=== PATIENT | female | born 1960 | race Caucasian/White ===

== ENCOUNTER 2017-01-22 04:50 | Emergency (ER) | payer MEDICAID ==
[~2017-01-22] VITALS: Ht 162.6 cm; Wt 106.4 kg
[~2017-01-22 04:50] MED LIST: ALLO100T21 PO; BACTO TP; CARV3.12 PO; CLIN300C2 PO; ENAL20TA31 PO; FURO-572 PO; KETO2CRE31 TP; LORA2SOL69 PO; POTA8TER12 PO; [UNRECOGNIZED DRUG - CODE] PO
[2017-01-22 05:14] VITALS: BP 151/90
--- NOTE | 2017-01-22 07:01 | NUR ---
TO ER BED 8
--- NOTE | 2017-01-22 07:04 | NUR ---
56F BIB FRIEND C/O ABDOMINAL PAIN X 4 QUADRANTS X 3 DAYS; PT C/O ACHING PAIN, RADIATING TO BL SIDES OF BACK, 10/10 AT THIS TIME. ABDOMEN SOFT, NON-TENDER, ACTIVE BOWEL SOUNDS X 4 QUADRANTS; PT C/O CONSTIPATION X 3 DAYS, W/NAUSEA, BUT DENIES VOMITING/DIARRHEA AT THIS TIME; PT STATES " I HAVE CELLULITIS ON BOTH MY LEGS"; REDNESS/WARMTH NOTED TO BL LEGS AT THIS TIME; PT A&OX4, BL LUNG SOUNDS CLEAR, RR EVEN/UNLABORED, SKIN IS WARM/DRY AT THIS TIME; PT RESTING IN BED W/HOB ELEVATED AND IN LOWEST POSITION; POSITIONED FOR COMFORT; ER MD MADE AWARE OF STATUS. WILL CONTINUE TO MONITOR.
--- NOTE | 2017-01-22 07:09 | NUR ---
ER MD DR. HUANG EVALUATING PT AT BEDSIDE.
[2017-01-22] MEDS ORDERED: DICYCLOMINE HCL LIQUID 20 MG, ALUMINUM HYD/MAG/SIMETHICONE 30 ML, LIDOCAINE VISCOUS 2% ... PO ONE ×3 (07:15)
[2017-01-22] MEDS ORDERED: KETOROLAC 60 MG/2 ML VIAL IM ONE (07:15)
--- NOTE | 2017-01-22 07:25 | NUR ---
PT REFUSED TORADOL; ER MD DR. CONRAD NOTIFIED. WILL CONTINUE TO MONITOR PT.
--- NOTE | 2017-01-22 07:31 | NUR ---
PT TAKEN TO XRAY VIA W/C ACCOMPANIED BY [employer].
[2017-01-22 08:03] LABS: BASOPHILS # (AUTO) 0.1 K/uL (0.00-0.22); BASOPHILS % (AUTO) 1.5 % (0.0-2.0); EOSINOPHILS # (AUTO) 0.2 K/uL (0-0.4); HEMATOCRIT 38.2 % (36-48); HEMOGLOBIN 12.4 g/dL (12.0-16.0); LYMPHOCYTES # (AUTO) 2.7 K/uL (2.5-16.5); LYMPHOCYTES % (AUTO) 37.9 % (20.5-51.1); MEAN CORPUSCULAR HEMOGLOBIN 24 pg (27-31); MEAN CORPUSCULAR HGB CONC 33 g/dL (33-37); MEAN CORPUSCULAR VOLUME 75 fL (80-94); MONOCYTES # (AUTO) 0.6 K/uL (0.8-1.0); MONOCYTES % (AUTO) 7.8 % (1.7-9.3); NEUTROPHILS # (AUTO) 3.5 K/uL (1.8-7.7); NEUTROPHILS % (AUTO) 49.8 % (42.2-75.2); PLATELET COUNT (AUTO) 201 K/uL (140-450); RED BLOOD CELL COUNT(AUTO) 5.11 MIL/uL (4.20-5.40); RED CELL DISTRIBUTION WIDTH 16.5 % (11.6-13.7); WHITE BLOOD COUNT (AUTO) 7.2 K/uL (4.8-10.8)
[2017-01-22 08:11] LABS: ANION GAP 9.5 (8-16); CALCIUM 8.8 mg/dL (8.5-10.1); CARBON DIOXIDE 32.5 mmol/L (21-32); CREATININE 0.9 mg/dL (0.6-1.3)
[2017-01-22 08:18] LABS: ALBUMIN 3.2 g/dL (3.4-5.0); TOTAL BILIRUBIN 0.5 mg/dL (0.0-1.0); TOTAL PROTEIN, SERUM 6.8 g/dL (6.4-8.2)
[2017-01-22 08:42] VITALS: BP 143/100
--- NOTE | 2017-01-22 08:42 | NUR ---
Patient discharged with v/s stable. Written and verbal after care instructions given and explained. Patient alert, oriented and verbalized understanding of instructions. Ambulatory with steady gait. All questions addressed prior to discharge. ID band removed. Patient advised to follow up with PMD. Rx of BENTYL 20MG TAB, CHLORHEXIDINE GLUCONATE 0.12% RINSE & COLACE 100MG CAP given. Patient educated on indication of medication including possible reaction and side effects. Opportunity to ask questions provided and answered.
== END 2017-01-22 08:42 | disposition home or self-care (01) ==
LOC: MED 04:50
DX: S80.12XA Contusion of left lower leg, initial encounter (principal); R10.9 Unspecified abdominal pain; E11.9 Type 2 diabetes mellitus without complications; I10 Essential (primary) hypertension; Z87.442 Personal history of urinary calculi; Z88.0 Allergy status to penicillin; W06.XXXA Fall from bed, initial encounter; Y93.89 Activity, other specified; Y92.89 Other specified places as the place of occurrence of the external cause; Y99.8 Other external cause status
CPT/HCPCS: 36415; 72170; 73502; 73562; 73590; 80053; 81002; 81025; 83690; 85025; 99285

== ENCOUNTER 2017-05-20 19:08 | Emergency (ER) | payer MEDICAID, OTHER ==
[~2017-05-20] VITALS: Ht 162.6 cm; Wt 102.5 kg
[2017-05-20 19:14] VITALS: BP 180/99
--- NOTE | 2017-05-20 20:25 | NUR ---
[facility] ER OF3
--- NOTE | 2017-05-20 20:30 | NUR ---
57 Y/O W/C/O MOUTH PAIN, MRSA IN HER URINE FOR A WHILE, BODYACHES. DENIES ANY FEVER OR CHILLS. NO S/S OF DISTRESS NOTED. ER MD MADE AWARE.
[2017-05-20 20:34] LABS: APPEARANCE,URINE CLEAR (CLEAR); BILIRUBIN,URINE NEGATIVE (NEGATIVE); BLOOD, URINE 2+ (NEGATIVE); COLOR,URINE YELLOW (YELLOW); LEUKOCYTE ESTERASE ,URINE NEGATIVE (NEGATIVE); NITRITE, URINE NEGATIVE (NEGATIVE); PROTEIN,URINE 3+ (NEGATIVE); UGLUCOSE 3+ (NEGATIVE); UROBILINOGEN,URINE 0.2 EU/dL (0.2 - 1)
[2017-05-20 20:44] LABS: BACTERIA,URINE RARE /HPF (None Seen); MUCUS,URINE 1+ /LPF (None Seen); RBC,URINE 20-40 /HPF (0-5); WBC,URINE 0-5 /HPF (0-5)
[2017-05-20] MEDS ORDERED: NACL 0.9% 1,000 ML IV ONE (20:55)
--- NOTE | 2017-05-20 20:55 | NUR ---
MOVED TO ER BED 6
[2017-05-20] MEDS ORDERED: MORPHINE SULFATE 4 MG/ML SYR IVP ONE (21:05)
[2017-05-20] MEDS ORDERED: ONDANSETRON 4 MG/2 ML VIAL IVP ONE (21:05)
[2017-05-20 21:22] LABS: BASOPHILS # (AUTO) 0.3 K/uL (0.00-0.22); EOSINOPHILS # (AUTO) 0.2 K/uL (0-0.4); HEMATOCRIT 38.7 % (36-48); HEMOGLOBIN 12.5 g/dL (12.0-16.0); LYMPHOCYTES # (AUTO) 2.4 K/uL (2.5-16.5); MEAN CORPUSCULAR HEMOGLOBIN 24 pg (27-31); MEAN CORPUSCULAR HGB CONC 32 g/dL (33-37); MEAN CORPUSCULAR VOLUME 74 fL (80-94); MONOCYTES # (AUTO) 0.6 K/uL (0.8-1.0); NEUTROPHILS # (AUTO) 4.1 K/uL (1.8-7.7); PLATELET COUNT (AUTO) 223 K/uL (140-450); RED BLOOD CELL COUNT(AUTO) 5.24 MIL/uL (4.20-5.40); RED CELL DISTRIBUTION WIDTH 16.5 % (11.6-13.7); WHITE BLOOD COUNT (AUTO) 7.6 K/uL (4.8-10.8)
[2017-05-20 21:32] LABS: ANION GAP 9.9 (8-16); CALCIUM 8.5 mg/dL (8.5-10.1); CARBON DIOXIDE 28.9 mmol/L (21-32); CREATININE 0.8 mg/dL (0.6-1.3); POTASSIUM 3.8 mmol/L (3.5-5.1)
--- NOTE | 2017-05-20 22:17 | NUR ---
Patient appears to be resting comfortably in bed. Vital Signs within normal limits. Respirations even and unlabored.
[2017-05-20 22:36] VITALS: BP 162/92
== END 2017-05-20 22:36 | disposition home or self-care (01) ==
LOC: MED 19:08
DX: M79.1 Myalgia (principal); E11.65 Type 2 diabetes mellitus with hyperglycemia; J44.9 Chronic obstructive pulmonary disease, unspecified; I10 Essential (primary) hypertension; Z88.0 Allergy status to penicillin
CPT/HCPCS: 36415; 71010; 80048; 81001; 85025; 93005; 96361; 96374; 96375; 99285; J2270; J2405; J7030; Q0092

== ENCOUNTER 2017-11-03 22:45 | Emergency (ER) | payer OTHER ==
[~2017-11-03] VITALS: Ht 167.6 cm; Wt 102.6 kg
[~2017-11-03 22:45] MED LIST changes: +ENAL20TA19 PO; -ENAL20TA31 PO
[2017-11-03 23:02] VITALS: BP 175/72
--- NOTE | 2017-11-03 23:08 | NUR ---
PT DROVE SELF TO ED C/O LEFT EAR "PLUGGED UP," CLEAR NASAL DISCHARGE, SOAR THROAT X3 WEEKS. PT VSS, IN BED IN POC WITH HOB ELEVATD. PT REQUESTING HOME MEDICATION REFILL. A&OX4. PT DENIES CHEST PAIN, RESPIRATORY DISTRESS. MD AWARE. CONTINUE TO MONITOR.
--- NOTE | 2017-11-03 23:08 | NUR ---
PT TAKEN TO BED 11
[2017-11-03] MEDS ORDERED: NACL 0.9% 1,000 ML IV ONE (23:40)
[2017-11-04 00:56] VITALS: BP 175/72
--- NOTE | 2017-11-04 00:56 | NUR ---
Patient discharged with v/s stable denies pain. Written and verbal after care instructions given and explained. Patient alert, oriented and verbalized understanding of instructions. Ambulatory with steady gait. All questions addressed prior to discharge. ID band removed. Patient advised to follow up with PMD. Rx of Allopurinol, Flonase, Lasix, Enalapril Maleate, Nexium given. Patient educated on indication of medication including possible reaction and side effects. Opportunity to ask questions provided and answered.
== END 2017-11-04 00:56 | disposition home or self-care (01) ==
LOC: MED 22:45
DX: H91.92 Unspecified hearing loss, left ear (principal); Z76.0 Encounter for issue of repeat prescription; R09.81 Nasal congestion; R05 Cough; J44.9 Chronic obstructive pulmonary disease, unspecified; E11.9 Type 2 diabetes mellitus without complications; K21.9 Gastro-esophageal reflux disease without esophagitis; I10 Essential (primary) hypertension; Z88.0 Allergy status to penicillin; Z79.899 Other long term (current) drug therapy
CPT/HCPCS: 99283

== ENCOUNTER 2020-05-27 22:16 | Observation (INO) | payer OTHER ==
[~2020-05-27] VITALS: Ht 162.6 cm; Wt 102.1 kg
[~2020-05-27 22:16] MED LIST changes: -ENAL20TA19 PO; +ENAL20TA99 PO
[2020-05-27 22:28] VITALS: BP 139/105
[2020-05-27 23:22] LABS: MEAN CORPUSCULAR HEMOGLOBIN 13 pg (27-31); MEAN CORPUSCULAR HGB CONC 26 g/dL (33-37); PLATELET COUNT (AUTO) 276 K/uL (140-450); RED BLOOD CELL COUNT(AUTO) 3.73 MIL/uL (4.20-5.40); RED CELL DISTRIBUTION WIDTH 22.4 % (11.6-13.7); WHITE BLOOD COUNT (AUTO) 7.5 K/uL (4.8-10.8)
[2020-05-27 23:33] LABS: ALBUMIN 3.1 g/dL (3.4-5.0); ANION GAP 16.5 (8-16); CARBON DIOXIDE 22.8 mmol/L (21-32); CREATININE 1.3 mg/dL (0.6-1.3); POTASSIUM 4.3 mmol/L (3.5-5.1); TOTAL BILIRUBIN 0.5 mg/dL (0.0-1.0)
[2020-05-27 23:38] LABS: EOSINOPHILS % (MANUAL) 1 % (0-4); LYMPHOCYTES % (MANUAL) 23 % (20-46); MONOCYTES % (MANUAL) 6 % (5-12)
[2020-05-28 00:12] LABS: PROTHROMBIN TIME 9.8 secs (10.8-13.4)
[2020-05-28] MEDS ORDERED: ONDANSETRON 4 MG/2 ML VIAL IVP PRN (02:25)
[2020-05-28] MEDS ORDERED: ACETAMINOPHEN 325 MG TAB PO PRN (02:25)
[2020-05-28] MEDS ORDERED: INSULIN LISPRO SLIDING SCALE 100 UNITS/ML VIAL SUBQ PRN (05:15)
[2020-05-28 08:12] VITALS: BP 138/78
[2020-05-28] MEDS ORDERED: PANTOPRAZOLE 40 MG TABEC PO SCH (09:00)
[2020-05-28] MEDS ORDERED: FERROUS SULFATE 325 MG TABEC PO SCH (17:00)
== END 2020-05-28 10:05 | disposition left against medical advice (07) ==
LOC: MED 22:16 → MTU 05-28 02:40
PROVIDERS: ADMIT Internal Medicine; ATTEND Internal Medicine
DX: D50.9 Iron deficiency anemia, unspecified (principal); E11.9 Type 2 diabetes mellitus without complications; R10.13 Epigastric pain; R07.89 Other chest pain; I10 Essential (primary) hypertension; J44.9 Chronic obstructive pulmonary disease, unspecified; K21.9 Gastro-esophageal reflux disease without esophagitis; Z91.19 Patient's noncompliance with other medical treatment and regimen; Z59.0 Homelessness; Z79.4 Long term (current) use of insulin; Z79.899 Other long term (current) drug therapy; Z88.0 Allergy status to penicillin
CPT/HCPCS: 36415; 36430; 71045; 80053; 82948; 83690; 83880; 84484; 85025; 85610; 85730; 86886; 86900; 86901; 86920; 93005; 96372; 99291; G0378; J1815; P9016

== ENCOUNTER 2020-06-19 20:51 | Emergency (ER) | payer OTHER ==
[~2020-06-19] VITALS: Ht 162.6 cm; Wt 104.3 kg
[2020-06-19 21:25] VITALS: BP 144/83
--- NOTE | 2020-06-19 21:30 | NUR ---
PT W/C TO BED 3 PT IN A LOT OF PAIN TO WALK FAR DISTANCE
--- NOTE | 2020-06-19 21:36 | NUR ---
PT PROVIDING URINE SAMPLE
[2020-06-19] MEDS ORDERED: MORPHINE SULFATE 4 MG/ML SYR IVP ONE ×2 (21:50→23:20)
[2020-06-19] MEDS ORDERED: ONDANSETRON 4 MG/2 ML VIAL IVP ONE (21:50)
--- NOTE | 2020-06-19 22:14 | NUR ---
LABS COLLECTED AT TIME OF IV START
[2020-06-19 22:21] LABS: BASOPHILS % (AUTO) 0.7 % (0.0-2.0); EOSINOPHILS # (AUTO) 0.1 K/uL (0-0.4); EOSINOPHILS % (AUTO) 2.5 % (0.0-4.0); HEMATOCRIT 29.3 % (36-48); HEMOGLOBIN 8.7 g/dL (12.0-16.0); LYMPHOCYTES # (AUTO) 1.4 K/uL (2.5-16.5); MEAN CORPUSCULAR HEMOGLOBIN 19 pg (27-31); MEAN CORPUSCULAR HGB CONC 30 g/dL (33-37); MEAN CORPUSCULAR VOLUME 62.8 fL (80-94); MONOCYTES # (AUTO) 0.4 K/uL (0.8-1.0); MONOCYTES % (AUTO) 7.6 % (1.7-9.3); NEUTROPHILS # (AUTO) 3.5 K/uL (1.8-7.7); NEUTROPHILS % (AUTO) 63.2 % (42.2-75.2); PLATELET COUNT (AUTO) 281 K/uL (140-450); RED BLOOD CELL COUNT(AUTO) 4.67 MIL/uL (4.20-5.40); WHITE BLOOD COUNT (AUTO) 5.5 K/uL (4.8-10.8)
--- NOTE | 2020-06-19 22:27 | NUR ---
PT C/O LLQ PAIN X 2 DAYS, SHARP 10/10 PAIN. DENIES N/V/D. NO PAIN WITH URINATION. PT STATES TENDER UPON PALPATION TO AREA. AFEBRILE, NO SOB. BED IN LOWEST POSITION AMD SIDERAIL UP X 1. ALLERGY- PCN HX - DM, HTN
--- NOTE | 2020-06-19 22:28 | NUR ---
PT TAKEN TO CT VIA JAKOB
--- NOTE | 2020-06-19 22:41 | NUR ---
PT RETURNED FROM CT, STATES PAIN IS A LITTLE BETTER. REQUESTING ICE CHIPS. DENIES N/V
[2020-06-19 22:42] LABS: APPEARANCE,URINE HAZY (CLEAR); COLOR,URINE YELLOW (YELLOW)
[2020-06-19 22:43] LABS: BILIRUBIN,URINE NEGATIVE (NEGATIVE); BLOOD, URINE 1+ (NEGATIVE); NITRITE, URINE NEGATIVE (NEGATIVE); UGLUCOSE 3+ (NEGATIVE)
[2020-06-19 22:44] LABS: LEUKOCYTE ESTERASE ,URINE TRACE (NEGATIVE)
[2020-06-19 22:52] LABS: ALBUMIN 3.2 g/dL (3.4-5.0); ANION GAP 8.8 (8-16); CARBON DIOXIDE 27.2 mmol/L (21-32); CREATININE 0.8 mg/dL (0.6-1.3); TOTAL BILIRUBIN 0.3 mg/dL (0.0-1.0)
[2020-06-19 23:07] LABS: RBC,URINE 11-20 (MOD) /HPF (0-5); WBC,URINE 0-5 /HPF (0-5)
[2020-06-20 00:05] VITALS: BP 144/81
--- NOTE | 2020-06-20 00:06 | NUR ---
Patient discharged with v/s stable. Written and verbal after care instructions given and explained. Patient verbalized understanding. Ambulatory with steady gait. All questions addressed prior to discharge. Advised to follow up with PMD.
== END 2020-06-20 00:05 | disposition home or self-care (01) ==
LOC: MED 20:51
DX: N20.0 Calculus of kidney (principal); N28.1 Cyst of kidney, acquired; E11.9 Type 2 diabetes mellitus without complications; I10 Essential (primary) hypertension; R16.1 Splenomegaly, not elsewhere classified; R73.9 Hyperglycemia, unspecified; R31.9 Hematuria, unspecified
CPT/HCPCS: 36415; 74176; 80053; 81001; 81025; 83690; 85025; 96374; 96375; 96376; 99284; J2270; J2405

== ENCOUNTER 2020-10-04 04:16 | Emergency (ER) | payer OTHER ==
[~2020-10-04] VITALS: Ht 162.6 cm; Wt 99.8 kg
[2020-10-04 04:55] VITALS: BP 203/100
--- NOTE | 2020-10-04 04:55 | NUR ---
to tent ambulatory
[2020-10-04 05:15] VITALS: BP 203/100
--- NOTE | 2020-10-04 05:25 | NUR ---
SEEN AND EXAMINED BY MAYTE WITH ORDERS AND CARRIED OUT
[2020-10-04 06:50] LABS: BASOPHILS % (AUTO) 0.5 % (0.0-2.0); EOSINOPHILS # (AUTO) 0.2 K/uL (0-0.4); EOSINOPHILS % (AUTO) 3.7 % (0.0-4.0); LYMPHOCYTES % (AUTO) 32.8 % (20.5-51.1); MEAN CORPUSCULAR HEMOGLOBIN 20 pg (27-31); MEAN CORPUSCULAR HGB CONC 31 g/dL (33-37); MEAN CORPUSCULAR VOLUME 65.8 fL (80-94); MONOCYTES # (AUTO) 0.6 K/uL (0.8-1.0); MONOCYTES % (AUTO) 9.3 % (1.7-9.3); NEUTROPHILS # (AUTO) 3.2 K/uL (1.8-7.7); NEUTROPHILS % (AUTO) 53.7 % (42.2-75.2); PLATELET COUNT (AUTO) 259 K/uL (140-450); RED BLOOD CELL COUNT(AUTO) 5.48 MIL/uL (4.20-5.40); RED CELL DISTRIBUTION WIDTH 19.1 % (11.6-13.7)
[2020-10-04 07:02] LABS: ALBUMIN 3.3 g/dL (3.4-5.0); ANION GAP 10.9 (8-16); CARBON DIOXIDE 30.3 mmol/L (21-32); POTASSIUM 4.2 mmol/L (3.5-5.1); TOTAL BILIRUBIN 0.3 mg/dL (0.0-1.0)
--- NOTE | 2020-10-04 08:00 | NUR ---
DR. BENJAMIN MADE AWARE PT LEFT FROM FACILITY.
--- NOTE | 2020-10-04 08:00 | NUR ---
WENT OUT TO LOOK FOR PATIENT, NO ANSWER.
== END 2020-10-04 08:00 | disposition left against medical advice (07) ==
LOC: MED 04:16
DX: R05 Cough (principal); M79.10 Myalgia, unspecified site; J44.9 Chronic obstructive pulmonary disease, unspecified; I10 Essential (primary) hypertension; E11.9 Type 2 diabetes mellitus without complications; Z88.0 Allergy status to penicillin; W19.XXXA Unspecified fall, initial encounter; Y93.89 Activity, other specified; Y92.098 Other place in other non-institutional residence as the place of occurrence of the external cause; Y99.8 Other external cause status
CPT/HCPCS: 70450; 71045; 80053; 85025; 99285